=== PATIENT | male | born 1975 | race Caucasian/White ===

== ENCOUNTER 2025-10-02 07:31 | Emergency (ER) | payer OTHER, SELFPAY ==
--- NOTE | ~2025-10-02 | US_ITS ---
US right upper quadrant Indication: ruq pain Comparison: None Technique: Oneill-scale and color Doppler images were obtained. Findings: LIVER: Moderate increased echogenicity of the liver. . GALLBLADDER/BILIARY: Minimal sludge, no wall thickening or pericholecystic fluid, no cholelithiasis. CBD 5.5 mm. [place] sign negative. PANCREAS: Unremarkable. Right Kidney: The right kidney was not imaged. Impression: Moderate hepatic steatosis Reviewed, dictated and finalized at location P. R COAT SPRAYER Impression: Moderate hepatic steatosis
[2025-10-02 07:39] VITALS: BP 149/100; PULSE 96; RESP 16; TEMP 36.8; O2SAT 98
[2025-10-02] MEDS: SODIUM CHLORIDE 0.9% IV 1,000 ML 999 ML IV CONT (08:00)
[2025-10-02] MEDS: KETOROLAC 30 MG/ML VIAL (*BKC) 15 MG IV PUSH (08:01)
[2025-10-02] MEDS: ONDANSETRON INJ 4 MG/2 ML VIAL IV PUSH (08:01)
[2025-10-02] MEDS: FAMOTIDINE 20 MG/2 ML VIAL IV PUSH (08:02)
[2025-10-02] MEDS: HYDROmorphone HCL INJ (*CRX) 1 MG/ML SYR 0.5 MG IV PUSH (08:02)
[2025-10-02 08:17] LABS: Hematocrit 50.3 % (42.0-52.0); Hemoglobin 17.5 g/dL (14.0-18.0); Immature Granulocyte Percent A 0.4 % (0-0.5); Lymphocytes Absolute Auto 1.25 K/mm3 (0.9-3.2); Mean Corpuscular HGB Conc 34.8 g/dl (32-36); Mean Corpuscular Hemoglobin 30.5 pg (26-34); Mean Corpuscular Volume 87.8 fl (80-100); Nucleated Red Blood Cells Absolute Auto 0.000 K/mm3 (0.0-0.012); Nucleated Red Blood Cells Perc 0.0 % (0.0-0.2); Platelet Count Result 320 k/mm3 (150-375); Red Blood Count 5.73 M/mm3 (4.6-6.20); White Blood Count 11.5 K/mm3 (4.5-10.0)
[2025-10-02 08:34] LABS: Alanine Aminotransferase 26 U/L (6-50); Albumin Level 4.8 g/dL (3.5-5.1); Alkaline Phosphatase 73 U/L (38-126); Anion Gap 13 mmol/L (4-12); Aspartate Amino Transferase 22 U/L (17-59); Bilirubin,Total 2.6 mg/dL (0.2-1.3); Blood Urea Nitrogen 16 mg/dL (9-20); Calcium 9.0 mg/dL (8.4-10.2); Carbon Dioxide 19 mmol/L (22-30); Chloride 103 mmol/L (98-107); Estimated CRCL calculation 102 ml/min; Estimated Glomerular Filt Rate > 60; Glucose 154 mg/dL (65-110); Lipase 86 U/L (23-300); Potassium 4.1 mmol/L (3.4-5.0); Sodium 135 mmol/L (137-145); Total Protein 8.0 g/dL (6.3-8.2)
--- NOTE | 2025-10-02 08:39 | ED_ITS ---
HPI - Nausea/Vomiting/Diarrhea General Chief complaint: Nausea/Vomiting/Diarrhea Stated complaint: n/v/d Time Seen by Provider: 10/02/25 07:42 History of Present Illness HPI Narrative: Pt presents with vomiting and diarrhea and ruq and upper epigastric abdominal pain for two days. Pt thinks he may have eaten some bad shrimp. Pt has had numerous episodes of emesis and diarrhea. Pt denies sick contacts or fever. Related Data Allergies Allergy/AdvReac Type Severity Reaction Status Date / Time No Known Allergies Allergy Verified 10/02/25 07:43 Review of Systems 2 Review of Systems: All systems reviewed & are unremarkable except as noted in HPI and below Exam 2 Const: General: healthy appearing and no acute distress Nutritional Appearance: well nourished Orientation/consciousness: patient oriented x3 Limitations: no limitations HENMT: Mouth: Yes Normal oral and palatal mucosa present and Yes moist mucous membranes Resp: Effort & Inspection: normal respiratory effort Auscultation: clear to auscultation bilaterally Cardio: Rate: regular rate Rhythm: regular rhythm GI: GI Palp: Yes Soft to palpation and Yes Tenderness to palpation present (GI) (epigastrum and ruq) Auscultation: normal bowel sounds Back/Spine/Pelvis: Back: no CVA tenderness Skin: General skin exam: normal color Rashes: no rashes Wounds: no wounds Neuro: General: patient oriented x3, moves all extremities, no meningeal signs, no focal motor deficits and CN's II-XI intact bilaterally Speech: n ormal speech Extrem: General: normal to inspection and no clubbing, cyanosis or edema Psych: Mental Status: mental status grossly normal Affect: normal affect Attitude: cooperative Course Vital Signs Vital signs: Vital Signs Temperature 98.2 F 10/02/25 07:39 Pulse Rate 96 10/02/25 07:39 Respiratory Rate 16 10/02/25 07:39 Blood Pressure 149/100 H 10/02/25 07:39 Pulse Oximetry 98 10/02/25 07:39 Temperature 98.2 F 10/02/25 07:39 Pulse Rate 96 10/02/25 07:39 Respiratory Rate 16 10/02/25 07:39 Blood Pressure 149/100 H 10/02/25 07:39 Pulse Oximetry 98 10/02/25 07:39 MDM - Nausea/Vomiting/Diarrhea MDM Narrative Medical decision making narrative: Pt feeling better after meds. no gallstone on sono. likely gastroenteritis. Differential Diagnosis Differential diagnosis: Likely food poisoning, gastroenteritis, dehydration and other (pancreatitis gallstones) Lab Data Attestation: I reviewed the patient's lab results. 10/02/25 08:09 10/02/25 08:09 Labs: Lab Results 10/02/25 Range/Units 08:09 WBC 11.5 H (4.5-10.0) K/mm3 RBC 5.73 (4.6-6.20) M/mm3 Hgb 17.5 (14.0-18.0) g/dL Hct 50.3 (42.0-52.0) % MCV 87.8 (80-100) fl MCH 30.5 (26-34) pg MCHC 34.8 (32-36) g/dl RDW 12.5 (11.5-14.5) % Plt Count 320 (150-375) k/mm3 MPV 10.7 H (7.4-10.4) fl Immature Gran % (Auto) 0.4 (0-0.5) % Neut % (Auto) 78.0 H (45.5-73.1) % Lymph % (Auto) 10.9 L (18.3-44.2) % Kinney % (Auto) 8.2 (2.6-8.5) % Eos % (Auto) 2.4 (0-4.4) % Baso % (Auto) 0.1 L (0.2-1.2) % Lymph # (Auto) 1.25 (0.9-3.2) K/mm3 Kinney # (Auto) 1.0 H (0.1-0.6) K/mm3 Eos # (Auto) 0.3 (0-0.3) K/mm3 Baso # (Auto) 0.0 (0.0-0.1) K/mm3 Abs Immat Gran (auto) 0.05 H (0.00-0.031) K/mm3 Absolute Neuts (auto) 9.0 H (1.3-6.7) K/mm3 Absolute Nucleated RBC 0.000 (0.0-0.012) K/mm3 Nucleated RBC % 0.0 (0.0-0.2) % Sodium 135 L (137-145) mmol/L Potassium 4.1 (3.4-5.0) mmol/L Chloride 103 (98-107) mmol/L Carbon Dioxide 19 L (22-30) mmol/L Anion Gap 13 H (4-12) mmol/L BUN 16 (9-20) mg/dL Creatinine 1.14 (0.7-1.3) mg/dL Estim Creat Clear Calc 102 ml/min Estimated GFR > 60 (59 - ) Glucose 154 H (65-110) mg/dL Calcium 9.0 (8.4-10.2) mg/dL Total Bilirubin 2.6 H (0.2-1.3) mg/dL AST 22 (17-59) U/L ALT 26 (6-50) U/L Alkaline Phosphatase 73 (38-126) U/L Total Protein 8.0 (6.3-8.2) g/dL Albumin 4.8 (3.5-5.1) g/dL Lipase 86 (23-300) U/L Imaging Data Radiologist's impression: [place] [address] [place] [id number] Ultrasound Report Signed Patient: Mookie Smith : 1975 MR#: [id number] Age: 50 Acct:[id number] Loc: [facility] ADM Date: 10/02/[address]: Ordering Physician: Ken Quiles III, DO Date of Service: 10/02/25 Procedure(s): US right upper quadrant Accession Number(s): [id number] cc: Ken Quiles III, ~ US right upper quadrant Indication: ruq pain Comparison: None Technique: Oneill-scale and color Doppler images were obtained. Findings: LIVER: Moderate increased echogenicity of the liver. . GALLBLADDER/BILIARY: Minimal sludge, no wall thickening or pericholecystic fluid, no cholelithiasis. CBD 5.5 mm. [place] sign negative. PANCREAS: Unremarkable. Right Kidney: The right kidney was not imaged. Impression: Moderate hepatic steatosis Reviewed, dictated and finalized at location P. DATION DIRECTOR Please be advised this is a medical document. It is intended for [id number] communication. It is written in medical language and may contain unfamiliar abbreviations or verbiage. Medical documents are intended to carry relevant information, facts as evident, and the clinical opinion of the practitioner at the time of the encounter. This report may have been done utilizing a voice recognition system. Attempts have been made to correct errors. However, there may be uncorrected grammatical, spelling, and recognition errors present. The file time of this note does not necessarily represent the time of service. Dictated By: Sarath Estrada MD 10/02/25 0848 Discharge Plan Discharge Clinical Impression: Gastroenteritis Patient Disposition: Home Condition: Improved Instructions: Antibiotic Form, Gastroenteritis (ED) Patient Language: Turkish Prescriptions: New ondansetron 4 mg tablet,disintegrating 4 mg PO Q8H PRN (Reason: nausea and vomiting) Qty: 14 0RF dicyclomine 20 mg tablet 20 mg PO QID Qty: 14 0RF Follow-up/Referrals: PHYSICIAN NOT ON STAFF,NONSTAFF [Non-Staff]
--- OUTSIDE RECORDS SUMMARY | 2025-10-02 09:50 | XMS_ITS | Clinical Summary ---
Author Organization [facility] [address] [place] [address] [address] [place] [address] Care Team Providers Care Environmental Specialist Name Role Phone Samantha Rueda NP Primary Care Provider [phone] Allergies No known active allergies Medications indomethacin (INDOCIN) 50 mg capsule TAKE 1 CAPSULE BY MOUTH EVERY 8 HOURS WITH FOOD NEEDED FOR PAIN. 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 Take 1 tablet (100 mg total) by mouth daily 90 tablet 3 5 Active lisinopriL (PRINIVIL,ZEST RIL) 10 mg tablet Take 1 tablet (10 mg total) by mouth daily 90 tablet 1 5 026 Active metFORMIN XR (GLUCOPHAGE XR) 500 mg 24 hr tabletIndicati ons:Type 2 diabetes mellitus without complication, without long-term current use of insulin (HCC) Take 1 tablet (500 mg total) by mouth daily with breakfast 90 tablet 1 5 026 Active rosuvastatin (CRESTOR) 10 mg tablet Take 1 tablet (10 mg total) by mouth daily 90 tablet 1 5 026 Active Mounjaro 2.5 mg/0.5 mL pen injector injectionIndic ations:Type 2 diabetes mellitus without complication, without long-term current use of insulin (HCC) INJECT 1/2 (ONE-HALF) ML SUBCUTANEOUSLY ONCE A WEEK 4 mL 5 Active tirzepatide (Mounjaro) 5 mg/0.5 mL pen injector injectionIndic ations:Type 2 diabetes mellitus without complication, without long-term current use of insulin (HCC) Inject 0.5 mL (5 mg total) under the skin every 7 days 2 mL 2 Active Active Problems Problem Noted Date Diagnosed Date Type 2 diabetes mellitus with hyperlipidemia Assessment & Plan (09/12/2025 7:58 AM CDT): Currently on rosuvastatin. Check lipid panel today Assessment & Plan (07/08/2025 10:04 AM CDT): Type 2 diabetes mellitus wit hout complication, without long-term current use of insulin 07/08/2025 Assessment & Plan (09/12/2025 7:58 AM CDT): Orders: tirzepatide (Mounjaro) 5 mg/0.5 mL pen injector injection; Inject 0.5 mL (5 mg total) under the skin every 7 days Comprehensive metabolic panel; Future Thyroid Function Sevier; Future Lipid panel; Future Hemoglobin A1c; Future Albumin Creatinine Ratio, Urine; Future Assessment & Plan (07/08/2025 10:04 AM CDT): Orders: metFORMIN XR (GLUCOPHAGE XR) 500 mg 24 hr tablet; Take 1 tablet (500 mg total) by mouth daily with breakfast tirzepatide (Mounjaro) 2.5 mg/0.5 mL pen injector injection; Inject 0.5 mL (2.5 mg total) under the skin every 7 days Hypertension, essential 06/04/2025 Assessment & Plan (09/12/2025 7:58 AM CDT): Orders: Comprehensive metabolic panel; Future Thyroid Function Sevier; Future Assessment & Plan (07/08/2025 10:04 AM CDT): Assessment & Plan (06/04/2025 7:30 AM CDT): Chronic idiopathic gout invo lving toe of right foot without tophus 06/04/2025 Assessment & Plan (06/04/2025 7:27 AM CDT): Orders: allopurinoL (ZYLOPRIM) 100 mg tablet; Take 1 tablet (100 mg total) by mouth daily Class 3 severe obesity due t o excess calories with serious comorbidity and body mass index (BMI) of 40.0 to 44.9 in adult 10/30/2024 Assessment & Plan (09/12/2025 7:58 AM CDT): Assessment & Plan (06/04/2025 7:30 AM CDT): BMI Follow-up includes: education provided. Assessment & Plan (10/30/2024 2:00 PM CHILD WELFARE WORKER): BMI Follow-up includes: nutrition counseling, exercise counseling, and education provided. Encounter for medical examination to establish c are 10/30/2024 Assessment & Plan (10/30/2024 2:00 PM CHILD WELFARE WORKER): A(n) initial well visit to establish care has been performed today. Mookie Smith is not up to date on screening tests. He is in need of Colon cancer screening, Cholesterol screening, Hepatitis B, and Hepatitis C screen. He is up to date on needed preventative vaccinations. We discussed healthy lifestyle habits, educational material has been given. Medications reviewed, changes documented as per the medical record and discussed with patient along with risks vs benefits. Specific topics reviewed: drugs, ETOH, and tobacco, importance of regular dental care, importance of regular exercise, importance of varied diet, limit TV, media violence, minimize junk food, and seat belts. Return in 6 months Encounters Date Type Department Care Team Description 09/12/2025 8:00 AM CDT Lab [address] [address] Type 2 diabetes mellitus without complication, without long-term current use of insulin (HCC); Hypertension, essential 09/12/2025 7:30 AM CDT Office Visit [facility] Primary Care at [address] [address] Samantha Rueda NP Encounter for screening colonoscopy (Primary Dx); Type 2 diabetes mellitus without complication, without long-term current use of insulin (HCC); Hypertension, essential; Class 3 severe obesity due to excess calories with serious comorbidity and body mass index (BMI) of 40.0 to 44.9 in adult; Type 2 diabetes mellitus with hyperlipidemia (HCC) 09/12/2025 Results Follow-Up [facility] Primary Care at [address] [id number] Samantha Rueda NP Albumin Creatinine Ratio, Urine, Hemoglobin A1c, Lipid panel, Additional followed-up results: 3 07/09/2025 Telephone [facility] Primary Care at [address] [address] Cj Reyes MD 07/08/2025 9:30 AM CDT Office Visit [facility] Primary Care at [address] [address] Samantha Rueda NP Hypertension, essential (Primary Dx); Type 2 diabetes mellitus without complication, without long-term current use of insulin (HCC); Type 2 diabetes mellitus with hyperlipidemia (HCC) from Last 3 Months Immunizations Immunization Administration Dates Next Due Influenza, Trivalent, Cell C ulture-based MDCK, Preservative Free, Antibiotic Free, Intramuscular 08/24/2024 Influenza, Unspecified 08/27/2025 Tdap 12/23/2020 Surgical History Surgery Date Site/Laterality Comments CYST REMOVAL 11/21/2000 - 11/20/2001 brachial cleft LASIK 09/2009 Medical History Medical History Date Comments Gout Family History Medical History Relation Name Comments Gout Brother 1 Depression Brother 2 Gout Brother 2 Melanoma Father Arrhythmia Mother Glaucoma Mother No Known Problems Sister Relation Name Status Comments Brother 1 Alive Brother 2 Alive Father Alive Mother Alive Sister Alive Social History Tobacco Use Types Packs/Day Years Used Date Smoking Tobacco: Former Cigarettes 1 17 0 11/21/1992 - 2009 Smokeless Tobacco: Never Tobacco Cessation:Counseling Given: Not Answered AUDIT-C Answer Date Recorded Q1: How often do you have a drink containing alc ohol? 2-4 times a month 10/30/2024 Q2: How many drinks containi ng alcohol do you have on a typical day when you are drinking? 1 or 2 10/30/2024 Q3: How often do you have si x or more drinks on one occasion? 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 Not on file Not on file Not on f ile Last Filed Vital Signs Vital Sign Reading Time Taken Comments Blood Pressure 114/72 09/12/2025 7:28 AM CDT Pulse 54 09/12/2025 7:28 AM CDT Temperature 36.4 C (97.6 F) 09/12/2025 7:28 AM CDT Respiratory Rate 16 09/12/2025 7:28 AM CDT Oxygen Saturation 97% 09/12/2025 7:28 AM CDT Inhaled Oxygen Concentration - - Weight 147.1 kg (324 lb 4.8 oz) 09/12/2025 7:28 AM CDT Height 182.9 cm (6') 09/12/2025 7:28 AM CDT Body Mass Index 43.98 09/12/2025 7:28 AM CDT Plan of Treatment Health Maintenance Due Date Last Done Comments Colon Cancer Screening-Colonoscopy 1977 Dilated Eye Exam 1977 Foot Exam 1977 Pneumococcal vaccine <65 (1 of 2 - PCV) 1996 Regular Well Visit/Exam 18-64 10/30/2025 10/30/2024 Hemoglobin A1C 03/13/2026 09/12/2025, 06/04/2025 Albumin Creatinine Ratio, Urine 09/12/2026 Depression Screening 09/12/2026 09/12/2025, 07/08/2025, 06/04/2025, Additional history exists Lipid Panel 09/12/2026 09/12/2025, 10/30/2024 eGFR 09/12/2026 09/12/2025, 07/03/2025, 10/30/2024 DTaP/Tdap/Td Vaccine (2 - Td or Tdap) 12/23/2030 12/23/2020 Hepatitis B Screening Completed 10/30/2024 Hepatitis C Screening Completed 10/30/2024 Influenza Vaccine Completed 08/27/2025, 08/24/2024 Procedures Procedure Name Priority Date/Time Associated Diagnosis Comments EGFR Routine 09/12/2025 8:03 AM CDT Type 2 diabetes mellitus without complication, without long-term current use of insulin (HCC) Hypertension, essential COMPREHENSIVE METABOLIC PANEL Routine 09/12/2025 8:03 AM CDT Type 2 diabetes mellitus without complication, without long-term current use of insulin (HCC) Hypertension, essential THYROID FUNCTION CASCADE Routine 09/12/2025 8:03 AM CDT Type 2 diabetes mellitus without complication, without long-term current use of insulin (HCC) Hypertension, essential LIPID PANEL Routine 09/12/2025 8:03 AM CDT Type 2 diabetes mellitus without complication, without long-term current use of insulin (HCC) HEMOGLOBIN A1C Routine 09/12/2025 8:03 AM CDT Type 2 diabetes mellitus without complication, without long-term current use of insulin (HCC) ALBUMIN CREATININE RATIO, URINE Routine 09/12/2025 8:03 AM CDT Type 2 diabetes mellitus without complication, without long-term current use of insulin (HCC) HEPATITIS C ANTIBODY Routine 10/30/2024 10:00 AM CHILD WELFARE WORKER Need for hepatitis C screening test from Last 3 Months or Most Recently Relevant to Health Maintenance Results * eGFR (09/12/2025 8:03 AM CDT) eGFR >90 >=60 mL/min/1. 73 m2 Comment: Interpretive Data Reference Interval Normal >/= 90 mL/min/1.73m2 Mildly decreased* 60 - 89 mL/min/1.73m2 Mildly to moderately decreased 45 - 59 mL/min/1.73m2 Moderately to severely decreased 30 - 44 mL/min/1.73m2 Severely decreased 15 - 29 mL/min/1.73m2 Kidney Failure < 15 mL/min/1.73m2 *Relative to young adult level Estimated glomerular filtration rate is determined by the 2020 CKD-EPI equation recommended by the National Kidney Foundation (A Unifying Approach to GFR Estimation: Recommendations of the NKF-ASK Task Force on Reassessing the Inclusion of Race in Diagnosing Kidney Disease, JASN 2020). The CKD-EPI equation should not be used for patients with unstable renal function and has not been validated in children and those over 70. Current interpretive data was last reviewed 2021. Blood 09/12/2025 8:03 AM CDT 09/12/2025 10:47 AM CDT Samantha Rueda LAB BLOOD ORDERABLES Final Re sult Performing Organization Address City/[facility]/ZIP Co de Phone Number [address] [place] [address] * Thyroid Function Sevier (09/12/2025 8:03 AM CDT) TSH 3.12 0.30 - 4.20 mcIUnit/mL Blood 09/12/2025 8:03 AM CDT 09/12/2025 10:47 AM CDT Samantha Rueda LAB BLOOD ORDERABLES Final Re sult Performing Organization Address City/[facility]/ZIP Co de Phone Number [address] [place] [address] * Albumin Creatinine Ratio, Urine (09/12/2025 8:03 AM CDT) Albumin Ur <12.0 mg/L Comment: Interpretive Data No reference range established. Current interpretive data was last revised 2019. Creatinine Ur 216.0 mg/dL CHARI Comment: Interpretive Data No reference range established. Current interpretive data was last revised 2019. Albumin Creatinine Ratio, Ur <6 1 - 29 mg/g [facility]I Urine 09/12/2025 8:03 AM CDT 09/12/2025 10:44 AM CDT Samantha Rueda WIRE DROPPER LAB URINE ORDERABLES Final Re sult Performing Organization Address [facility] de Phone Number [address] [address] * (ABNORMAL) Hemoglobin A1c (09/12/2025 8:03 AM CDT) Hgb A1C 5.8(H) 4.0 - 5.6 % Estimated Average Glucose 120 mg/dL CHARI Comment: The ADA recommends reporting an estimated Average Glucose (eAG) with all Hemoglobin A1c results using the equation derived from a study of 507 normal and diabetic adults. Minority populations were underrepresented and children were not included. (Diabetes Care 31:8616-3913, 2008). The eAG is not equivalent to a fasting glucose. Blood 09/12/2025 8:03 AM CDT 09/12/2025 10:46 AM CDT Samantha Rueda NP LAB BLOOD ORDERABLES Final Re sult Performing Organization Address [facility] de Phone Number [address] [address] * (ABNORMAL) Lipid panel (09/12/2025 8:03 AM CDT) Pathologist [facility] Cholesterol 117 30 - 199 mg/dL Comment: Interpretive Data Ages < or = 19 years Acceptable: <170 mg/dL Borderline high: 170-199 mg/dL High: >or= 200 mg/dL Ages > or = 20 years Desirable: <200 mg/dL Borderline high: 200-239 mg/dL High: >or= 240 mg/dL Literature References: 1. Expert Panel on Integrated Guidelines for Cardiovascular Health and Risk Reduction in Children and Adolescents. Pediatrics 2011;128:S213 2. NCEP Expert Panel. Circulation 2004;110:227 Current Interpretive Data was last revised on 2018. Triglycerides 199(H) <=149 mg/dL [facility]I Comment: Interpretive Data Ages < or = 9 years Acceptable: <75 mg/dL Borderline high: 75-99 mg/dL High: >or= 100 mg/dL Ages 10 to 20 years Acceptable: <90 mg/dL Borderline high: 90-129 mg/dL High: >or= 130 mg/dL Ages > or = 20 years Desirable: <150 mg/dL Borderline high: 150-199 mg/dL High: 200-499 mg/dL Very high: >or= 499 mg/dL Literature References: 1. Expert Panel on Integrated Guidelines for Cardiovascular Health and Risk Reduction in Children and Adolescents. Pediatrics 2011;128:S213 2. NCEP Expert Panel. Circulation 2004;110:227 Current Interpretive Data was last revised on 2018. HDL 35(L) >=40 mg/dL [facility] CASE Comment: Interpretive Data Ages < or = 19 years Acceptable: >45 mg/dL Borderline low: 40-45 mg/dL Low: <40 mg/dL Ages > or = 20 years Desirable: >or= 60 mg/dL Low: <40 mg/dL Literature References: 1. Expert Panel on Integrated Guidelines for Cardiovascular Health and Risk Reduction in Children and Adolescents. Pediatrics 2011;128:S213 2. NCEP Expert Panel. Circulation 2004;110:227 Current Interpretive Data was last revised on 2018. LDL, calculated 50 <=129 mg/dL [facility] CASE Comment: Interpretive Data Ages < or = 19 years Acceptable: <110 mg/dL Borderline high: 110-129 mg/dL High: >or= 130 mg/dL Ages > or = 20 years Optimal: <100 mg/dL Near optimal: 100-129 mg/dL Borderline high: 130-159 mg/dL High: >160 mg/dL Calculated using the Niko LDL-C estimating equation. This equation was implemented on 2024. Prior to this date LDL-C was estimated using the Friedewald equation. Literature References: 1. Expert Panel on Integrated Guidelines for Cardiovascular Health and Risk Reduction in Children and Adolescents. Pediatrics 2011;128:S213 2. NCEP Expert Panel. Circulation 2004;110:227 3. Niko Loomis al. KRYSTIAN Cardiol. 2020 March 21;5(5):540-548. doi: 10.1001/jamacardio.2020.0013 Current Interpretive Data was last revised on 2024. Non-HDL Cholesterol 82 mg/dL [facility] Comment: Interpretive Data Ages < or = 19 years Acceptable: <120 mg/dL Borderline high: 120-144 mg/dL High: >145 mg/dL Ages > or = 20 years When triglycerides are >200 mg/dL, Non-HDL cholesterol is a secondary target of therapy with treatment goals that are 30 mg/dL greater than the LDL cholesterol target. Literature References: 1. Expert Panel on Integrated Guidelines for Cardiovascular Health and Risk Reduction in Children and Adolescents. Pediatrics 2011;128:S213 2. NCEP Expert Panel. Circulation 2004;110:227 Current Interpretive Data was last revised on 2018. Chol/HDL ratio 3 [facility] Blood 09/12/2025 8:03 AM CDT 09/12/2025 10:47 AM CDT Samantha Rueda NP LAB BLOOD ORDERABLES Final Re sult [facility] [address] [facility] Department [place] [address] * (ABNORMAL) Comprehensive metabolic panel (09/12/2025 8:03 AM CDT) Sodium 141 135 - 145 mmol/L Potassium, pl 4.6 3.3 - 4.9 mmol/L [facility] Chloride 104 97 - 110 mmol/L [facility] CO2 27 22 - 32 mmol/L [facility] Anion gap 10 2 - 15 mmol/L [facility] BUN 13 6 - 25 mg/dL [facility] Creatinine 1.01 0.80 - 1.30 mg/dL [facility] Glucose 117 70 - 199 mg/dL [facility] Comment: Interpretive Data Fasting glucose >/= 126 mg/dl is diagnostic for diabetes. Fasting is defined as no caloric intake for at least 8 hours. Fasting glucose between 100 mg/dl to 125 mg/dl is diagnostic of prediabetes. In a patient with classic symptoms of hyperglycemia or hyperglycemic crisis, a random glucose >/= 200 mg/dl is diagnostic for diabetes. In the absence of unequivocal hyperglycemia, results should be confirmed by repeat testing. The classification and Diagnosis of Diabetes Diabetes Care 2022; 46: S19-S40. Current interpretive data was last revised 2022. Calcium 9.8 8.5 - 10.3 mg/dL [facility] Bilirubin, total 1.4(H) 0.1 - 1.2 mg/dL [facility] Protein, pl 7.3 6.5 - 8.5 g/dL [facility] Albumin 4.4 3.5 - 5.0 g/dL [facility] Alk phos 73 40 - 130 Units/L [facility] ALT 34 7 - 55 Units/L [facility] AST 25 10 - 50 Units/L [facility] Blood 09/12/2025 8:03 AM CDT 09/12/2025 10:47 AM CDT Samantha Rueda NP LAB BLOOD ORDERABLES Final Re sult Performing Organization Address City/[facility] Co de Phone Number CHARI [address] [facility] Department [place] [address] * Hepatitis C antibody Blood (10/30/2024 10:00 AM CHILD WELFARE WORKER) Hep C Ab Nonreactive Nonreactive Comment: Interpretive Data Nonreactive: Antibodies to HCV not detected. Does NOT exclude the possibility of recent exposure to HCV. Equivocal: Equivocal for HCV antibodies. Supplemental molecular testing will be automatically performed to determine infection status in accordance with current CDC screening recommendations. Reactive: Positive for HCV antibodies. This may represent current or past HCV infection. Supplemental molecular testing will be automatically performed to determine current infection status in accordance with current CDC screening recommendations. Interpretive data was last revised on 2020. Blood 10/30/2024 10:0 0 AM CHILD WELFARE WORKER 10/30/2024 6:12 PM CHILD WELFARE WORKER Cj Reyes MD LAB MICROBIOLOGY - GENERAL ORDERABLES Final Result Performing Organization Address City/[facility]/ZIP Co de Phone Number [facility] [address] Department [place] [address] from Last 3 Months or Most Recently Relevant to Health Maintenance Insurance [facility] Care Teams Environmental Specialist Relationship Specialty Start Date End Date Samantha Rueda NP [facility] [address] [place] [address] PCP - General Family Medicine 09/12/25
--- OUTSIDE RECORDS SUMMARY | 2025-10-02 09:50 | XMS_ITS | Clinical Summary ---
Author Organization [facility] Address [address] [place] [address] Care Team Providers Care Weaver Dobby Loom Name Role Phone Unavailable Primary Care Provider Unavailabl e Encounters Date Type Department Care Team Description 07/09/2025 External Device Data STL ABSTRACTION Provider, Abstract from Last 3 Months Immunizations Immunization Administration Dates Next Due INFLUENZA VACCINE TRIVALENT MDCK, (6 MOS UP), 0.5ML (PF), IM 08/24/2024 Social History Tobacco Use Types Packs/Day Years Used Date Smoking Tobacco: Never Assessed Sex and Gender Information Value Date Recorded Sex Assigned at Not on file Legal Sex Male 2:47 PM CDT Gender Identity Not on file Sexual Orientation Not on file Plan of Treatment Health Maintenance Due Date Last Done Comments DTAP/TDAP/TD VACCINES (1 - Tdap) 1996 HEPATITIS B VACCINES (1 of 3 - 19+ 3-dose series) 06/1996 COLORECTAL SCREENING 2022 Colorectal Cancer Screening 2022 FIT-DNA Q 3 years 2022 FIT/FOBT Q 1 year 2022 Flex Sig/CT Colonography Q 5 years 2022 INFLUENZA VACCINE (#1) 2025 08/24/2024 Insurance [facility] OPTIONS PPO [id number]
--- OUTSIDE RECORDS SUMMARY | 2025-10-02 09:50 | XMS_ITS | Encounter Summary ---
Author Organization [facility] Healthcare Address [address] [place] [address] Care Team Providers Care Automatic Mounter Name Role Phone Samantha Rueda IS ANALYST Primary Care Provider [phone] Encounter Details Date Type Department Care Team (Late st Contact Info) Description 09/12/2025 Results Follow-Up [facility] Primary Care at [address] [address] Samantha Rueda, IS ANALYST [address] [place] [address] [address] [place] [address] Albumin Creatinine Ratio, Urine, Hemoglobin A1c, Lipid panel, Additional followed-up results: 3 Social History Tobacco Use Types Packs/Day Years Used Date Smoking Tobacco: Former Cigarettes 1 17 0 11/21/1992 - 2009 Smokeless Tobacco: Never AUDIT-C Answer Date Recorded Q1: How often [...] 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 Not on file Not on f ile documented as of this encounter Functional Status * BP Location Answer Date of Assessment Author Left arm 09/12/2025 7:28 AM CDT Yulissa Stanley MA * BP Location Answer Date of Assessment Author Left arm 09/12/2025 7:28 AM CDT Yulissa Stanley MA documented as of this encounter Plan of Treatment Not on file documented as of this encounter Visit Diagnoses Not on filedocumented in this encounter Care Teams Automatic Mounter Relationship Specialty Start Date End Date Samantha Rueda NP [address] [facility] [address] [place] [address] PCP - General Family Medicine 09/12/25 documented as of this encounter
== END 2025-10-02 10:20 | disposition home or self-care (01) ==
PROVIDERS: Emergency Provider Emergency Medicine; PCP Nurse Practitioner Family
DX: K52.9 Noninfective gastroenteritis and colitis, unspecified (principal); K76.0 Fatty (change of) liver, not elsewhere classified
CPT/HCPCS: 36415; 76705; 80053; 83690; 85025; 96361; 96374; 96375; 99284; J1171; J1885; J2405; J7030

== ENCOUNTER 2025-10-02 17:36 | Emergency (ER) | payer OTHER, SELFPAY ==
--- NOTE | ~2025-10-02 | CT_ITS ---
CT abdomen pelvis w con INDICATION:abd pain, vomiting, diarrhea . COMPARISON: None. TECHNIQUE: Axial images of the abdomen and pelvis were obtained following infusion of 100 mL Isovue 300. Dose optimization technique was utilized. FINDINGS: The lung bases are clear. Fatty infiltration of the liver is noted. No intrahepatic mass or ductal dilatation is evident. The gallbladder is unremarkable. The pancreas and spleen are normal in appearance. The adrenal glands are symmetric in size. Kidneys enhance symmetrically.. No cystic mass is evident. There is no solid mass. There is no hydronephrosis. Evaluation of the stomach and bowel loops are limited due to lack of oral contrast. The appendix is not visualized however no secondary signs of appendicitis are identified. The bladder and rectum are normal. No free intraperitoneal fluid or air is evident. There is no significant retroperitoneal lymphadenopathy. The aorta, visceral vessels and renal arteries demonstrate normal caliber and patency. The lower thoracic and lumbar vertebrae are in normal alignment. IMPRESSION: No acute abnormality is noted in the abdomen and pelvis. All CT scans at this facility are performed using low dose modulation techniques as appropriate to perform exam including the following: automated exposure control; use of iterative reconstruction technique; adjustment of the mA and/or kV according to patient size (this includes techniques or standardized protocols for targeted exams where dose is matched to indication/reason for exam). Reviewed, dictated and finalized at location S. DESIGN SALES CONSULTANT IMPRESSION: No acute abnormality is noted in the abdomen and pelvis. All CT scans at this facility are performed using low dose modulation techniqu es as appropriate to perform exam including the following: automated exposure c ontrol; use of iterative reconstruction technique; adjustment of the mA and/or kV according to patient size (this includes techniques or standardized protocol s for targeted exams where dose is matched to indication/reason for exam).
[2025-10-02 17:39] VITALS: BP 112/77; PULSE 78; RESP 20; TEMP 36.8; O2SAT 98
--- OUTSIDE RECORDS SUMMARY | 2025-10-02 17:39 | XMS_ITS | Clinical Summary ---
Author Organization [facility] Address [address] [place] [address] Care Team Providers Care General Distillery Worker Name Role Phone Unavailable Primary Care Provider [...] 2022 INFLUENZA VACCINE (#1) 2025 08/24/2024 Insurance [facility] OPTIONS PPO [id number]
--- OUTSIDE RECORDS SUMMARY | 2025-10-02 17:39 | XMS_ITS | Clinical Summary ---
Author Organization [facility] [address] Address [address] [place] [address] [address] [place] [address] Care Team Providers Care Wood Treating Inspector Name Role Phone Samantha Rueda NP Primary Care Provider [phone] Allergies No known active allergies Medications indomethacin [...] days Comprehensive metabolic panel; Future Thyroid Function [place]; Future Lipid panel; Future Hemoglobin A1c; Future [...] Orders: Comprehensive metabolic panel; Future Thyroid Function [place]; Future Assessment & Plan (07/08/2025 10:04 AM [...] provided. Assessment & Plan (10/30/2024 2:00 PM FIELD CONTACT PERSON): BMI Follow-up includes: nutrition counseling, exercise counseling, and education provided. Encounter for medical examination to establish c are 10/30/2024 Assessment & Plan (10/30/2024 2:00 PM FIELD CONTACT PERSON): A(n) initial well visit to establish care [...] Team Description 09/12/2025 8:00 AM CDT Lab [address] [address] Type 2 diabetes mellitus without complication, without long-term current use of insulin (HCC); Hypertension, essential 09/12/2025 7:30 AM CDT Office Visit [facility] Primary Care at [address] [id number] Samantha Rueda NP Encounter for screening colonoscopy (Primary Dx); Type 2 diabetes mellitus without complication, without long-term current use of insulin (HCC); Hypertension, essential; Class 3 severe obesity due to excess calories with serious comorbidity and body mass index (BMI) of 40.0 to 44.9 in adult; Type 2 diabetes mellitus with hyperlipidemia (HCC) 09/12/2025 Results Follow-Up [facility] Primary Care at [address] [id number] Samantha Rueda NP Albumin Creatinine Ratio, Urine, Hemoglobin A1c, Lipid panel, Additional followed-up results: 3 07/09/2025 Telephone [facility] Primary Care at [address] [phone] Cj Reyes MD 07/08/2025 9:30 AM CDT Office Visit [facility] Primary Care at [address] [phone] Samantha Rueda NP Hypertension, essential [...] 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 on file Not [...] HEPATITIS C ANTIBODY Routine 10/30/2024 10:00 AM FIELD CONTACT PERSON Need for hepatitis C screening test from [...] ORDERABLES Final Re sult Performing Organization Address City/[facility]/ZIP Co de Phone Number [address] [employer] [place] [place] [address] * Thyroid Function [place] (09/12/2025 8:03 AM CDT) TSH 3.12 0.30 - 4.20 mcIUnit/mL Blood 09/12/2025 8:03 AM CDT 09/12/2025 10:47 AM CDT Samantha Rueda LAB BLOOD ORDERABLES Final Re sult Performing Organization Address City/[facility]/ZIP Co de Phone Number [address] [place] [place] [address] * Albumin Creatinine Ratio, Urine (09/12/2025 8:03 [...] CDT 09/12/2025 10:44 AM CDT Samantha Rueda DATABASE ENGINEER LAB URINE ORDERABLES Final Re sult Performing Organization Address [facility] de Phone Number [address] [address] * (ABNORMAL) Hemoglobin A1c (09/12/2025 8:03 AM CDT) Hgb A1C 5.8(H) 4.0 - 5.6 % Estimated Average Glucose 120 mg/dL CHARI Comment: The ADA recommends reporting an estimated Average Glucose (eAG) with all Hemoglobin A1c results using the equation derived from a study of 507 normal and diabetic adults. Minority populations were underrepresented and children were not included. (Diabetes Care 31:9960-3283, 2008). The eAG is not equivalent to a fasting glucose. Blood 09/12/2025 8:03 AM CDT 09/12/2025 10:46 AM CDT Samantha Rueda NP LAB BLOOD ORDERABLES Final Re sult Performing Organization Address [facility] de Phone Number [address] [address] * (ABNORMAL) Lipid panel (09/12/2025 8:03 AM CDT) Pathologist [facility] Cholesterol 117 30 - 199 mg/dL Comment: [...] revised on 2024. Non-HDL Cholesterol 82 mg/dL [facility] Comment: Interpretive Data Ages < or = [...] last revised on 2018. Chol/HDL ratio 3 [facility] Blood 09/12/2025 8:03 AM CDT 09/12/2025 10:47 AM CDT Samantha Rueda NP LAB BLOOD ORDERABLES Final Re sult [facility] [address] [facility] Department [place] [address] * (ABNORMAL) Comprehensive metabolic panel (09/12/2025 8:03 AM CDT) Sodium 141 135 - 145 mmol/L Potassium, pl 4.6 3.3 - 4.9 mmol/L [facility] Chloride 104 97 - 110 mmol/L [facility] CO2 27 22 - 32 mmol/L [facility] Anion gap 10 2 - 15 mmol/L [facility] BUN 13 6 - 25 mg/dL [facility] Creatinine 1.01 0.80 - 1.30 mg/dL [facility] Glucose 117 70 - 199 mg/dL [facility] Comment: Interpretive Data Fasting glucose >/= 126 [...] 2022. Calcium 9.8 8.5 - 10.3 mg/dL [facility] Bilirubin, total 1.4(H) 0.1 - 1.2 mg/dL [facility] Protein, pl 7.3 6.5 - 8.5 g/dL [facility] Albumin 4.4 3.5 - 5.0 g/dL [facility] Alk phos 73 40 - 130 Units/L [facility] ALT 34 7 - 55 Units/L [facility] AST 25 10 - 50 Units/L [facility] Blood 09/12/2025 8:03 AM CDT 09/12/2025 10:47 AM CDT Samantha Rueda NP LAB BLOOD ORDERABLES Final Re sult Performing Organization Address City/[facility] Co de Phone Number CHARI [address] [facility] Department [place] [address] * Hepatitis C antibody Blood (10/30/2024 10:00 AM FIELD CONTACT PERSON) Hep C Ab Nonreactive Nonreactive Comment: Interpretive [...] on 2020. Blood 10/30/2024 10:0 0 AM FIELD CONTACT PERSON 10/30/2024 6:12 PM FIELD CONTACT PERSON Cj Reyes MD LAB MICROBIOLOGY - GENERAL ORDERABLES Final Result Performing Organization Address City/[facility]/ZIP Co de Phone Number [facility] [address] Department [place] [address] from Last 3 Months or Most Recently Relevant to Health Maintenance Insurance [facility] Care Teams Wood Treating Inspector Relationship Specialty Start Date End Date Samantha Rueda NP [facility] [address] [place] [address] PCP - General Family Medicine 09/12/25
--- OUTSIDE RECORDS SUMMARY | 2025-10-02 17:39 | XMS_ITS | Encounter Summary ---
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
--- NOTE | 2025-10-02 18:54 | ED_ITS ---
HPI - Recheck/Abnormal Lab/Rx General Chief Complaint: Abdominal Pain <Yulissa Gagnon PA-C - Last Filed: 10/03/25 12:43> Stated Complaint: gastroenteritis <Yulissa Gagnon PA-C - Last Filed: 10/03/25 12:43> Time Seen by Provider: 10/02/25 18:54 <Yulissa Gagnon PA-C - Last Filed: 10/03/25 12:43> Focused HPI: This is a 50 year old male that presents to the ER for abdominal pain, nausea and vomiting. Reports he was seen this morning for this. Reports pain worsened when he got home. Has had diarrhea as well. GENERAL: Well-appearing, well-nourished, and in no acute distress. HEAD: Normocephalic, atraumatic. CHEST: Clear to auscultation. ?No respiratory distress. HEART: Regular rate and rhythm.? NEURO: ?Alert and oriented x3. Patient screened in triage and initial orders placed.? ?Additional care and disposition to be based upon?diagnostic testing and treatment. <Yulissa Gagnon PA-C - Last Filed: 10/03/25 12:43> History of Present Illness HPI narrative: Agree with the above with the following additions corrections: Diagnosed with gastroenteritis. No recent travel or antibiotics. Has been on Monjaro since July with dose change from 1/4mg to 1/2 mg 3 weeks ago. No previous colonoscopy, has never seen a GI. No previous EGD. No recent travel of antibiotics. Drinking water and pedialyte seems to make symptoms worse. Had been prescribed Zofran adn Bentyl. Took them at home but vomited them up. History of DM not on insulin. He reports his HA1c has gone from 6.7% to 5.7%. He is having nausea an non bloody emesis. LBM with diarrhea, nonbloody. No fevers or chills. No sick contacts. <Francy Jesus MD - Last Filed: 10/06/25 02:53> Related Data Allergies/Adverse Reactions: Allergies Allergy/AdvReac Type Severity Reaction Status Date / Time No Known Allergies Allergy Verified 10/02/25 07:43 <Yulissa Gagnon PA-C - Last Filed: 10/03/25 12:43> Review of Systems 2 Review of Systems: All systems reviewed & are unremarkable except as noted in HPI and below <Yulissa Gagnon PA-C - Last Filed: 10/03/25 12:43> PMFSH Past Medical History Medical History: Medical History Non-insulin dependent diabetes mellitus <Yulissa Gagnon PA-C - Last Filed: 10/03/25 12:43> Social History Social History: Social History Social History: Living arrangements: with family Additional living arrangements comments: <Yulissa Gagnon PA-C - Last Filed: 10/03/25 12:43> Exam 2 Narrative: GENERAL: Well-appearing, well-nourished, and in no acute distress. HEAD: Normocephalic, atraumatic. EYES: Non injected, non icteric ENT: Nares clear, no rhinorrhea or epistaxis. Gross auditory acuity intact. NECK: Supple. No meningismus. CHEST: Speaking in full sentences. No respiratory distress. HEART: Regular rate and rhythm. . ABDOMEN: Soft, nondistended. No rigidity or guarding. Not peritoneal EXTREMITIES: Normal range of motion. No lower extremity edema. SKIN: Warm, dry, no rash. NEURO: No focal deficits. Alert and oriented. Answering questions. Following commands. Normal speech without aphasia or dysarthria. PSYCH: Normal mood and affect. <Francy Jesus MD - Last Filed: 10/06/25 02:53> Course Vital Signs Vital signs: Vital Signs Temperature 98.2 F 10/02/25 17:39 Pulse Rate 78 10/02/25 17:39 Respiratory Rate 20 10/02/25 17:39 Blood Pressure 112/77 10/02/25 17:39 Pulse Oximetry 98 10/02/25 17:39 Temperature 98.2 F 10/02/25 17:39 Pulse Rate 84 10/03/25 01:11 Respiratory Rate 20 10/03/25 01:11 Blood Pressure 129/81 10/03/25 01:11 Pulse Oximetry 98 10/03/25 01:11 <Yulissa Gagnon PA-C - Last Filed: 10/03/25 12:43> Vital Signs Temperature 98.2 F 10/02/25 17:39 Pulse Rate 78 10/02/25 17:39 Respiratory Rate 20 10/02/25 17:39 Blood Pressure 112/77 10/02/25 17:39 Pulse Oximetry 98 10/02/25 17:39 Temperature 98.2 F 10/02/25 17:39 Pulse Rate 84 10/03/25 01:11 Respiratory Rate 20 10/03/25 01:11 Blood Pressure 129/81 10/03/25 01:11 Pulse Oximetry 98 10/03/25 01:11 <Francy Jesus MD - Last Filed: 10/06/25 02:53> MDM - Recheck/Abnormal Lab/Rx MDM Narrative Medical decision making narrative: Patient presents with epigsatric abdominal pain. Seen earlier and diagnosed with gastroenteritis. Discharged with Rx for Zofran and Bentyl but couldn't keep medication down. In the emergency department they are afebrile with vital signs within normal limits. Mild leukocytosis, possible mild degree of hemoconcentration. Only trace ketones in urine as well as trace leukocyte esterase but otherwise without marked signs of infection. He has hyperbilirubinemia but other liver function tests are normal. It is indirect predominant. Ddx indirect hyperbilirubinemia Over production of bilirubin (hemolytic anemia), reduced uptake (cirrhosis or congestive hepatopathy), impaired conjugation, biliary obstruction, hereditary disease (Gilbert syndrome, Jesus-Norberto syndrome, Crigler-Elvira syndrome), medication side effect (allopurinol, anabolic steroids, antibiotics, antimalarials, etc.) Patient successfully PO challenges. Viral swab negative. <Francy Jesus MD - Last Filed: 10/06/25 02:53> Differential Diagnosis Differential diagnosis: Likely other (gastroenteritis; dehydration; gastritis enteritis; colitis; acute diarrhea; ) <Francy Jesus MD - Last Filed: 10/06/25 02:53> Medical Records Attestation: I reviewed the patient's medical records. <Francy Jesus MD - Last Filed: 10/06/25 02:53> Medical records narrative: ED note from earlier today presentation is reviewed in which patient had undergone right upper quadrant ultrasound imaging showing some hepatic steatosis. Discharged with prescriptions for Zofran and Bentyl. Viral swab not performed at the time. <Francy Jesus MD - Last Filed: 10/06/25 02:53> Lab Data Attestation: I reviewed the patient's lab results. <Francy Jesus MD - Last Filed: 10/06/25 02:53> Result diagrams: 10/02/25 19:51 10/02/25 19:51 <Yulissa Gagnon PA-C - Last Filed: 10/03/25 12:43> Labs: Lab Results 10/02/25 10/02/25 10/03/25 Range/Units 19:10 19:51 00:10 WBC 12.5 H (4.5-10.0) K/mm3 RBC 5.88 (4.6-6.20) M/mm3 Hgb 17.8 (14.0-18.0) g/dL Hct 51.3 (42.0-52.0) % MCV 87.2 (80-100) fl MCH 30.3 (26-34) pg MCHC 34.7 (32-36) g/dl RDW 12.6 (11.5-14.5) % Plt Count 307 (150-375) k/mm3 MPV 10.4 (7.4-10.4) fl Immature Gran % (Auto) 0.2 (0-0.5) % Neut % (Auto) 80.8 H (45.5-73.1) % Lymph % (Auto) 8.3 L (18.3-44.2) % Bracken % (Auto) 8.7 H (2.6-8.5) % Eos % (Auto) 1.8 (0-4.4) % Baso % (Auto) 0.2 (0.2-1.2) % Lymph # (Auto) 1.03 (0.9-3.2) K/mm3 Bracken # (Auto) 1.1 H (0.1-0.6) K/mm3 Eos # (Auto) 0.2 (0-0.3) K/mm3 Baso # (Auto) 0.0 (0.0-0.1) K/mm3 Abs Immat Gran (auto) 0.03 (0.00-0.031) K/mm3 Absolute Neuts (auto) 10.1 H (1.3-6.7) K/mm3 Absolute Nucleated RBC 0.000 (0.0-0.012) K/mm3 Nucleated RBC % 0.0 (0.0-0.2) % Sodium 135 L (137-145) mmol/L Potassium 4.3 (3.4-5.0) mmol/L Chloride 104 (98-107) mmol/L Carbon Dioxide 19 L (22-30) mmol/L Anion Gap 12 (4-12) mmol/L BUN 20 (9-20) mg/dL Creatinine 1.08 (0.7-1.3) mg/dL Estim Creat Clear Calc 107 ml/min Estimated GFR > 60 (59 - ) Glucose 136 H (65-110) mg/dL Calcium 8.6 (8.4-10.2) mg/dL Total Bilirubin 2.3 H (0.2-1.3) mg/dL Direct Bilirubin 0.0 (0-0.3) mg/dL Indirect Bilirubin 2.0 H (0-1.1) mg/dL AST 18 (17-59) U/L ALT 24 (6-50) U/L Alkaline Phosphatase 69 (38-126) U/L Total Protein 7.7 (6.3-8.2) g/dL Albumin 4.7 (3.5-5.1) g/dL Lipase 74 (23-300) U/L Urine Color Yellow (Yellow) Urine Appearance Clear (Clear) Urine pH 5.0 (5.0-9.0) Ur Specific [place] 1.028 (1.001-1.035) Urine Protein 1+ H (Negative) mg/dL Urine Glucose (UA) Negative (Negative) mg/dL Urine Ketones Trace H (Negative) mg/dL Ur Blood (Man) Negative (Negative) Urine Nitrate Negative (Negative) Urine Bilirubin Negative (Negative) Urine Urobilinogen 0.2 (<2.0) mg/dL Leukocyte Esterase Rfl Trace H (Negative) TULIO/UL Urine RBC 0-2 (0-2) /hpf Urine WBC 0-5 (0-3) /hpf Ur Squamous Epith Cells Occasional (Few) /hpf Urine Bacteria None seen /hpf Urine Casts 0-2 Influenza A (RT-PCR) Negative (Negative) Influenza B (RT-PCR) Negative (Negative) SARS-CoV-2 RNA (RT-PCR) Negative (Negative) <Yulissa Gagnon PA-C - Last Filed: 10/03/25 12:43> Lab Results 10/02/25 10/02/25 10/03/25 Range/Units 19:10 19:51 00:10 WBC 12.5 H (4.5-10.0) K/mm3 RBC 5.88 (4.6-6.20) M/mm3 Hgb 17.8 (14.0-18.0) g/dL Hct 51.3 (42.0-52.0) % MCV 87.2 (80-100) fl MCH 30.3 (26-34) pg MCHC 34.7 (32-36) g/dl RDW 12.6 (11.5-14.5) % Plt Count 307 (150-375) k/mm3 MPV 10.4 (7.4-10.4) fl Immature Gran % (Auto) 0.2 (0-0.5) % Neut % (Auto) 80.8 H (45.5-73.1) % Lymph % (Auto) 8.3 L (18.3-44.2) % Bracken % (Auto) 8.7 H (2.6-8.5) % Eos % (Auto) 1.8 (0-4.4) % Baso % (Auto) 0.2 (0.2-1.2) % Lymph # (Auto) 1.03 (0.9-3.2) K/mm3 Bracken # (Auto) 1.1 H (0.1-0.6) K/mm3 Eos # (Auto) 0.2 (0-0.3) K/mm3 Baso # (Auto) 0.0 (0.0-0.1) K/mm3 Abs Immat Gran (auto) 0.03 (0.00-0.031) K/mm3 Absolute Neuts (auto) 10.1 H (1.3-6.7) K/mm3 Absolute Nucleated RBC 0.000 (0.0-0.012) K/mm3 Nucleated RBC % 0.0 (0.0-0.2) % Sodium 135 L (137-145) mmol/L Potassium 4.3 (3.4-5.0) mmol/L Chloride 104 (98-107) mmol/L Carbon Dioxide 19 L (22-30) mmol/L Anion Gap 12 (4-12) mmol/L BUN 20 (9-20) mg/dL Creatinine 1.08 (0.7-1.3) mg/dL Estim Creat Clear Calc 107 ml/min Estimated GFR > 60 (59 - ) Glucose 136 H (65-110) mg/dL Calcium 8.6 (8.4-10.2) mg/dL Total Bilirubin 2.3 H (0.2-1.3) mg/dL Direct Bilirubin 0.0 (0-0.3) mg/dL Indirect Bilirubin 2.0 H (0-1.1) mg/dL AST 18 (17-59) U/L ALT 24 (6-50) U/L Alkaline Phosphatase 69 (38-126) U/L Total Protein 7.7 (6.3-8.2) g/dL Albumin 4.7 (3.5-5.1) g/dL Lipase 74 (23-300) U/L Urine Color Yellow (Yellow) Urine Appearance Clear (Clear) Urine pH 5.0 (5.0-9.0) Ur Specific [place] 1.028 (1.001-1.035) Urine Protein 1+ H (Negative) mg/dL Urine Glucose (UA) Negative (Negative) mg/dL Urine Ketones Trace H (Negative) mg/dL Ur Blood (Man) Negative (Negative) Urine Nitrate Negative (Negative) Urine Bilirubin Negative (Negative) Urine Urobilinogen 0.2 (<2.0) mg/dL Leukocyte Esterase Rfl Trace H (Negative) TULIO/UL Urine RBC 0-2 (0-2) /hpf Urine WBC 0-5 (0-3) /hpf Ur Squamous Epith Cells Occasional (Few) /hpf Urine Bacteria None seen /hpf Urine Casts 0-2 Influenza A (RT-PCR) Negative (Negative) Influenza B (RT-PCR) Negative (Negative) SARS-CoV-2 RNA (RT-PCR) Negative (Negative) <Francy Jesus MD - Last Filed: 10/06/25 02:53> Imaging Data Radiologist's impression: ITS Impressions Abdomen/Pelvis CT 10/02/25 21:38 IMPRESSION: No acute abnormality is noted in the abdomen and pelvis. All CT scans at this facility are performed using low dose modulation techniques as appropriate to perform exam including the following: automated exposure control; use of iterative reconstruction technique; adjustment of the mA and/or kV according to patient size (this includes techniques or standardized protocols for targeted exams where dose is matched to indication/reason for exam). <Yulissa Gagnon PA-C - Last Filed: 10/03/25 12:43> Critical Care Time Critical Care Time Critical Care Time: No <HEIDI Rodarte Last Filed: 10/03/25 12:43> Discharge Plan Discharge Clinical Impression: Leukocytosis, Gastroenteritis, Epigastric abdominal pain <HEIDI Rodarte Last Filed: 10/03/25 12:43> Patient Disposition: Home <HEIDI Rodarte Last Filed: 10/03/25 12:43> Condition: Stable <HEIDI Rodarte Last Filed: 10/03/25 12:43> Instructions: Antibiotic Form, Gastroenteritis (ED), Leukocytosis (ED), Epigastric Pain (ED) <HEIDI Rodarte Last Filed: 10/03/25 12:43> Additional Instructions: Your symptoms are consistent with gastroenteritis which was the diagnosis you received earlier today. This is typically viral although you tested negative COVID, influenza a, influenza B. your CT scan the rest of your workup did not reveal an alternative cause. Continue taking the medications you are prescribed. Rest and maintain your hydration as best as possible, small sips of water are sufficient. Follow up with a collaborative physician to schedule your outpatient screening colonoscopy at some point. The name of a collaborative physician is listed below if needed. Return to the emergency department any new or worsening symptoms. Use Immodium AD if absolutely needed but in general try to avoid and let your symptoms run their course. <HEIDI Rodarte Last Filed: 10/03/25 12:43> Patient Language: Malay <HEIDI Rodarte Last Filed: 10/03/25 12:43> Prescriptions: No Action ondansetron 4 mg tablet,disintegrating 4 mg PO Q8H PRN (Reason: nausea and vomiting) Qty: 14 0RF dicyclomine 20 mg tablet 20 mg PO QID Qty: 14 0RF <Yulissa Gagnon PA-C - Last Filed: 10/03/25 12:43> Follow-up/Referrals: Jakob Leung MD [Physician, Gastroenterology] Mohit,AYANA BroderickP [Primary Care Provider, Unknown] <Yulissa Gagnon PA-C - Last Filed: 10/03/25 12:43> Stand Alone Forms: Work/School Release IP <Yulissa Gagnon PA-C - Last Filed: 10/03/25 12:43> Time of Disposition: 00:59 <Yulissa Gagnon PA-C - Last Filed: 10/03/25 12:43> 00:59 <Francy Jesus MD - Last Filed: 10/06/25 02:53>
[2025-10-02 19:59] LABS: Hematocrit 51.3 % (42.0-52.0); Hemoglobin 17.8 g/dL (14.0-18.0); Immature Granulocyte Percent A 0.2 % (0-0.5); Lymphocytes Absolute Auto 1.03 K/mm3 (0.9-3.2); Mean Corpuscular HGB Conc 34.7 g/dl (32-36); Mean Corpuscular Hemoglobin 30.3 pg (26-34); Mean Corpuscular Volume 87.2 fl (80-100); Nucleated Red Blood Cells Absolute Auto 0.000 K/mm3 (0.0-0.012); Nucleated Red Blood Cells Perc 0.0 % (0.0-0.2); Platelet Count Result 307 k/mm3 (150-375); Red Blood Count 5.88 M/mm3 (4.6-6.20); White Blood Count 12.5 K/mm3 (4.5-10.0)
[2025-10-02 20:09] LABS: Add Urine Microscopic? YES; Appearance Urine Clear (Clear); Glucose Urine UA Negative (Negative); Leukocyte Esterase Ur Trace LEU/UL (Negative); Nitrate Urine Negative (Negative); Non Pathogenic Casts 0-2; Specific Grav Ur 1.028 (1.001-1.035)
[2025-10-02 20:10] LABS: Alanine Aminotransferase 24 U/L (6-50); Albumin Level 4.7 g/dL (3.5-5.1); Alkaline Phosphatase 69 U/L (38-126); Anion Gap 12 mmol/L (4-12); Aspartate Amino Transferase 18 U/L (17-59); Bilirubin,Total 2.3 mg/dL (0.2-1.3); Blood Urea Nitrogen 20 mg/dL (9-20); Calcium 8.6 mg/dL (8.4-10.2); Carbon Dioxide 19 mmol/L (22-30); Chloride 104 mmol/L (98-107); Estimated CRCL calculation 107 ml/min; Estimated Glomerular Filt Rate > 60; Glucose 136 mg/dL (65-110); Lipase 74 U/L (23-300); Potassium 4.3 mmol/L (3.4-5.0); Sodium 135 mmol/L (137-145); Total Protein 7.7 g/dL (6.3-8.2)
[2025-10-02 22:30] VITALS: BP 131/82; PULSE 86; RESP 16; O2SAT 91
[2025-10-02] MEDS: ONDANSETRON INJ 4 MG/2 ML VIAL IV PUSH (23:35)
[2025-10-02] MEDS: DICYCLOMINE HCL INJ 20 MG/2 ML VIAL IM (23:39)
[2025-10-02] MEDS: MORPHINE SULFATE (*CRX) 4 MG/ML INJ IV PUSH (23:40)
[2025-10-03 00:52] LABS: Influenza A QL RT-PCR Negative (Negative); Influenza B QL RT-PCR Negative (Negative); SARS-CoV-2 RNA PCR Negative (Negative)
--- NOTE | 2025-10-03 01:02 | PC.NURSE ---
passed po challange of one cup of ice water. ed dr tineo
[2025-10-03] MEDS: FAMOTIDINE 20 MG/2 ML VIAL IV PUSH (01:07)
[2025-10-03 01:11] VITALS: BP 129/81; PULSE 84; RESP 20; O2SAT 98
== END 2025-10-03 01:22 | disposition home or self-care (01) ==
PROVIDERS: Physician Assistant; Emergency Provider Student in an Organized Health Care Education/Training Program; PCP Nurse Practitioner Family
DX: K52.9 Noninfective gastroenteritis and colitis, unspecified (principal); D72.829 Elevated white blood cell count, unspecified; Z20.822 Contact with and (suspected) exposure to COVID-19; E11.9 Type 2 diabetes mellitus without complications; K76.0 Fatty (change of) liver, not elsewhere classified
CPT/HCPCS: 36415; 74177; 76705; 80053; 81001; 82248; 83690; 85025; 87636; 96361; 96372; 96374; 96375; 99284; J0500; J1171; J1885; J2270; J2405; J7030; Q9967